=== PATIENT | male | born 1990 | race Two or more races ===

== ENCOUNTER → 2023-02-25 08:17 | Outpatient (BNVA) | payer OTHER, SELFPAY | PROVIDERS: PCP Family Medicine; Visit Provider Physician Assistant Medical | DX: Z77.21 Contact with and (suspected) exposure to potentially hazardous body fluids (principal) | CPT/HCPCS: 99204 ==

== ENCOUNTER → 2023-03-12 13:04 | Outpatient (BNVA) | payer OTHER, SELFPAY | PROVIDERS: PCP Family Medicine; Visit Provider Physician Assistant | DX: Z77.21 Contact with and (suspected) exposure to potentially hazardous body fluids (principal) | CPT/HCPCS: 99213 ==

== ENCOUNTER → 2023-09-04 11:46 | Outpatient (BNVA) | payer OTHER, SELFPAY | PROVIDERS: PCP Family Medicine; Visit Provider Physician Assistant | DX: S29.011A Strain of muscle and tendon of front wall of thorax, initial encounter (principal); Y35.811A Legal intervention involving manhandling, law enforcement official injured, initial encounter | CPT/HCPCS: 73030; 99204 ==

== ENCOUNTER → 2023-09-15 13:02 | Outpatient (BNVA) | payer OTHER, SELFPAY | PROVIDERS: PCP Family Medicine; Visit Provider Physician Assistant | DX: S29.011A Strain of muscle and tendon of front wall of thorax, initial encounter (principal); Y35.811A Legal intervention involving manhandling, law enforcement official injured, initial encounter | CPT/HCPCS: 99213 ==

== ENCOUNTER 2024-03-01 00:36 | Emergency (ER) | payer OTHER, SELFPAY ==
[2024-03-01 00:44] VITALS: BP 120/72; PULSE 67; RESP 16; TEMP 36.6; O2SAT 98; BMI 31.7
[2024-03-01 04:01] VITALS: BP 103/59; PULSE 60; RESP 17; TEMP 36.5; O2SAT 97
[2024-03-01] MEDS: Tobramycin Sulfate 0.3% Sol Op 5 ML BTL 2 DROP EYE-RIGHT (04:06)
[2024-03-01 04:18] VITALS: BP 103/59; PULSE 60; RESP 17; TEMP 36.5; O2SAT 97
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
== END 2024-03-01 04:20 | disposition home or self-care (01) ==
PROVIDERS: Emergency Provider Internal Medicine
DX: S00.211A Abrasion of right eyelid and periocular area, initial encounter (principal); H10.9 Unspecified conjunctivitis; S50.312A Abrasion of left elbow, initial encounter; S80.811A Abrasion, right lower leg, initial encounter; S10.81XA Abrasion of other specified part of neck, initial encounter; Y35.91XA Legal intervention, means unspecified, law enforcement official injured, initial encounter; Y93.89 Activity, other specified; Y92.9 Unspecified place or not applicable; Y99.0 Civilian activity done for income or pay
CPT/HCPCS: 99283; 99284

== ENCOUNTER → 2024-03-02 09:06 | Outpatient (BNVA) | payer OTHER, SELFPAY | PROVIDERS: Visit Provider Physician Assistant Medical | DX: Z09 Encounter for follow-up examination after completed treatment for conditions other than malignant neoplasm (principal); S50.312A Abrasion of left elbow, initial encounter; S80.211A Abrasion, right knee, initial encounter; S00.211A Abrasion of right eyelid and periocular area, initial encounter; S10.91XA Abrasion of unspecified part of neck, initial encounter; Y35.811A Legal intervention involving manhandling, law enforcement official injured, initial encounter; W17.81XA Fall down embankment (hill), initial encounter | CPT/HCPCS: 99203 ==

== ENCOUNTER → 2024-03-04 10:15 | Outpatient (BNVA) | payer OTHER, SELFPAY | PROVIDERS: Visit Provider Physician Assistant | DX: S00.211A Abrasion of right eyelid and periocular area, initial encounter (principal); S70.11XA Contusion of right thigh, initial encounter; W17.81XA Fall down embankment (hill), initial encounter | CPT/HCPCS: 99214 ==

== ENCOUNTER → 2024-03-14 10:05 | Outpatient (BNVA) | payer OTHER, SELFPAY | PROVIDERS: PCP Family Medicine; Visit Provider Physician Assistant Medical | DX: S76.912A Strain of unspecified muscles, fascia and tendons at thigh level, left thigh, initial encounter (principal); S39.012A Strain of muscle, fascia and tendon of lower back, initial encounter; W17.81XA Fall down embankment (hill), initial encounter | CPT/HCPCS: 93971; 99214 ==

== ENCOUNTER → 2024-03-29 09:33 | Outpatient (BNVA) | payer OTHER, SELFPAY | PROVIDERS: PCP Family Medicine; Visit Provider Physician Assistant Medical | DX: S39.012D Strain of muscle, fascia and tendon of lower back, subsequent encounter (principal); S70.12XD Contusion of left thigh, subsequent encounter; W17.81XD Fall down embankment (hill), subsequent encounter | CPT/HCPCS: 99213 ==

== ENCOUNTER → 2024-04-20 09:28 | Outpatient (BNVA) | payer OTHER, SELFPAY | PROVIDERS: PCP Family Medicine; Visit Provider Physician Assistant Medical | DX: M54.50 Low back pain, unspecified (principal); S70.12XD Contusion of left thigh, subsequent encounter; W17.81XD Fall down embankment (hill), subsequent encounter | CPT/HCPCS: 99213 ==

== ENCOUNTER 2024-04-21 10:00 | Outpatient (RCR) | payer OTHER, SELFPAY ==
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
--- NOTE | 2024-05-06 14:04 | MHC.PT.DC ---
[facility] [place] Office [place] Office [place] Office [address]is [address] [phone] F: [phone] F: [phone] F: [phone] F: [phone] Physical Therapy Discharge Report Diagnosis: L thigh hematoma; LBP Date of Surgery: Date of Evaluation: 03/16/24 Date of Discharge: 05/06/24 Treatments to Date: 10 Cancellations to Date: 0 No Shows to Date: 3 Discharge Status: Improved Function Independent with HEP Visit Non-compliance Discharge Summary: Aftab has been an active participant in his therapy with good home program compliance. He has achieved his goals and improved function of his L thigh but persists with LBP impacting his level of function which he relates to his initial injury. He is being discharged today per our attendance policy after 3 no show visits. Electronically signed by: Perez Bashir PT. Please sign and return to therapist. Thank you for your referral.
== END 2024-05-06 13:30 | disposition home or self-care (01) ==
LOC: HO.PT 10:00
PROVIDERS: PCP Family Medicine; Visit Provider Physician Assistant
DX: S70.12XD Contusion of left thigh, subsequent encounter (principal)
CPT/HCPCS: 97014; 97035; 97110; 97140; 97161; 97164

== ENCOUNTER → 2024-05-11 09:42 | Outpatient (BNVA) | payer OTHER, SELFPAY | PROVIDERS: PCP Family Medicine; Visit Provider Physician Assistant Medical | DX: S39.012D Strain of muscle, fascia and tendon of lower back, subsequent encounter (principal); W17.81XD Fall down embankment (hill), subsequent encounter; Y35.811D Legal intervention involving manhandling, law enforcement official injured, subsequent encounter | CPT/HCPCS: 99213 ==

== ENCOUNTER → 2024-05-31 09:46 | Outpatient (BNVA) | payer OTHER, SELFPAY | PROVIDERS: PCP Family Medicine; Visit Provider Physician Assistant Medical | DX: S70.12XD Contusion of left thigh, subsequent encounter (principal); W17.81XD Fall down embankment (hill), subsequent encounter; Y35.811D Legal intervention involving manhandling, law enforcement official injured, subsequent encounter | CPT/HCPCS: 99213 ==

== ENCOUNTER 2024-06-19 01:24 | Emergency (ER) | payer OTHER, SELFPAY ==
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
[2024-06-19 01:30] VITALS: BP 133/79; PULSE 105; RESP 20; TEMP 37.2; O2SAT 97
[2024-06-19 01:32] VITALS: BMI 34.3
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
[2024-06-19] MEDS: Morphine Sulfate Immed Release 15 MG TABLET PO (02:02)
[2024-06-19] MEDS: Doxycycline Monohydrate 100 MG CAPSULE PO (02:03)
[2024-06-19] MEDS: Diphth,Pertus(ACell),Tet Adult 0.5 ML SYRINGE IM (02:03)
[2024-06-19] MEDS: HYDROcodone Bit/Acetam 5/325 TABLET 1 TAB PO (03:12)
[2024-06-19] MEDS: Bacitracin Oint 0.9 GM PACKET 1 APPL TOPICAL (03:13)
[2024-06-19 03:17] VITALS: BP 133/79; PULSE 105; RESP 20; TEMP 37.2; O2SAT 97
== END 2024-06-19 03:17 | disposition home or self-care (01) ==
PROVIDERS: Emergency Provider Emergency Medicine; PCP Family Medicine
DX: S62.306A Unspecified fracture of fifth metacarpal bone, right hand, initial encounter for closed fracture (principal); S60.511A Abrasion of right hand, initial encounter; M79.641 Pain in right hand; Y04.8XXA Assault by other bodily force, initial encounter; Y93.89 Activity, other specified; Y92.89 Other specified places as the place of occurrence of the external cause; Y99.0 Civilian activity done for income or pay; Z23 Encounter for immunization
CPT/HCPCS: 29125; 73130; 90471; 90715; 99284